=== PATIENT | male | born 2000 | race African-American/Black ===

== ENCOUNTER 2022-06-25 00:19 | Emergency (ER) | payer MEDICAID ==
[~2022-06-25] VITALS: Ht 182.9 cm; Wt 72.0 kg
[2022-06-25] MEDS ORDERED: CIP03OS RIGHTEYE (01:35)
[2022-06-25 01:40] VITALS: BP 130/67
== END 2022-06-25 01:45 | disposition home or self-care (01) ==
LOC: ER 00:22
DX: H10.211 Acute toxic conjunctivitis, right eye (principal)

== ENCOUNTER 2022-12-15 20:50 | Emergency (ER) | payer MEDICAID ==
[~2022-12-15] VITALS: Ht 182.9 cm; Wt 78.3 kg
[~2022-12-15 20:50] MED LIST: CIP03OS RIGHTEYE
[2022-12-15] MEDS ORDERED: TETANUS-DIPTH-ACEL PERTUSSIS 0.5ML SYR Tdap IM ONE (22:30)
[2022-12-16 00:30] VITALS: BP 137/83
[2022-12-16] MEDS ORDERED: AMOX500T86 PO (01:30)
== END 2022-12-16 01:34 | disposition left against medical advice (07) ==
LOC: ER 20:50
DX: S81.051A Open bite, right knee, initial encounter (principal); S81.031A Puncture wound without foreign body, right knee, initial encounter; W54.0XXA Bitten by dog, initial encounter; Y93.89 Activity, other specified; Y92.89 Other specified places as the place of occurrence of the external cause; Y99.8 Other external cause status
CPT/HCPCS: 73562; 90471; 90715

== ENCOUNTER 2024-11-17 23:41 | Emergency (ER) | payer MEDICAID ==
[~2024-11-17] VITALS: Ht 185.4 cm; Wt 76.6 kg
[~2024-11-17 23:41] MED LIST changes: +AMOX500T86 PO
[2024-11-18] VITALS: PULSE 62; RESP 8; O2SAT 98
[2024-11-18] MEDS: NALOXONE HCL 1MG/ML 2ML SYRINGE IV ONE (00:13)
[2024-11-18 00:21] LABS: Basophils # (auto) 0.1 10 ^3/uL (0-0.2); Basophils % (auto) 0.8 % (0.0-2.0); Eosinophils # (auto) 0.2 10 ^3/uL (0-0.8); Eosinophils % (auto) 1.5 % (0.0-7.0); Hematocrit 41.7 % (41.0-53.0); Hemoglobin 13.7 g/dL (13.5-17.5); Lymphocytes # (auto) 1.7 10 ^3/uL (0.4-5.4); Lymphocytes % (auto) 12.3 % (10.0-50.0); Mean Corpuscular Hemoglobin 27.3 pg (28.0-32.0); Mean Corpuscular Hgb Conc. 32.7 g/dL (32.0-36.0); Mean Corpuscular Volume 83.4 fL (80.0-100.0); Neutrophils # (auto) 10.9 10 ^3/uL (1.6-8.6); Neutrophils % (auto) 78.4 % (37.0-80.0); Platelet Count (auto) 304 10^3/uL (140-450); White Blood Cell 13.9 10^3/uL (4.4-10.8)
[2024-11-18 00:41] LABS: Alanine Aminotransferase 22 U/L (7-40); Alkaline Phosphatase 62 U/L (46-116); Anion Gap 11 (5-15); Aspartate Aminotransferase 35 U/L (13-40); BUN/Creatinine Ratio 11.2 (10.0-20.0); Blood Urea Nitrogen 11 mg/dL (9-23); Carbon Dioxide 26 mmol/L (20-31); Chloride 101 mmol/L (98-107); Sodium 138 mmol/L (136-145); Total Protein 7.6 g/dL (5.7-8.2)
[2024-11-18 00:42] LABS: Albumin 5.2 g/dL (3.2-4.8); Bilirubin, Total 0.8 mg/dL (0.2-1.0); Calcium 10.5 mg/dL (8.7-10.4); Glucose 116 mg/dL (74-106); Potassium 3.3 mmol/L (3.5-5.1)
[2024-11-18] MEDS: SODIUM CHLORIDE 0.9% 1,000 ML IV ONE (01:11)
[2024-11-18 01:48] LABS: Urine Bacteria None Seen /hpf (None Seen)
[2024-11-18 02:21] LABS: Urine Blood Negative /uL (Negative); Urine Clarity Clear (Clear); Urine Color Yellow (Yellow); Urine Mucus FEW (None Seen); Urine Protein, UAD TRACE (Negative); Urine Squamous Epithelial Cell FEW /hpf (<5); Urine Urobilinogen 2 mg/dL (Negative); Urine WBC 1 /HPF (0-3)
[2024-11-18 02:32] LABS: Cannabinoid Screen, Urine Pos (NEGATIVE); Cocaine Screen, Urine Neg (NEGATIVE)
[2024-11-18 02:33] LABS: Amphetamine Screen, Urine Neg (NEGATIVE); Barbiturate Scree,Urine Neg (NEGATIVE); Benzodiazephine Screen, Urine Neg (NEGATIVE); Opiate Scree,Urine Neg (NEGATIVE); Phencyclidine Screen, Urine Neg (NEGATIVE)
--- NOTE | 2024-11-18 02:36 | ED.PDOC ---
Psychiatric HPI Comments 23-year-old male brought in by mother. It upon initial exam patient states he was trying to get high so he took two tablets of fentanyl/oxycodone. States he was not feeling in the high effect so he called his desire to get more pills. Patient states he took over 10 pills throughout the day today. Upon talking with patient's mother she was states that patient has made several SI statements. Patient states he has made attempts in the past with overdosing. 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 Goes on binges four days while he leaves home and does not come home. Chief Complaint: Ingestion Time Seen by MD: 23:45 Primary Care Provider: GLADYS Reviewed Notes: Nurses Notes Information Source: Patient, Relative (Mother) Mode of Arrival: Ambulatory Past Medical History PAST MEDICAL HISTORY: Denies Surgical History: Denies all surgeries Family History Family History: Unknown Social History Smoker: Non-Smoker Alcohol: Denies ETOH Use Drugs: Denies Drug Use Lives In: Home Constitutional: denies: chills, diaphoresis, fatigue, fever, malaise, sweats, weakness, others EENTM: denies: blurred vision, double vision, ear bleeding, ear discharge, ear drainage, ear pain, ear ringing, eye pain, eye redness, hearing loss, mouth pain, mouth swelling, nasal discharge, nose bleeding, nose congestion, nose pain, photophobia, tearing, throat pain, throat swelling, voice changes, others Respiratory: denies: cough, hemoptysis, orthopnea, SOB at rest, shortness of breath, SOB with excertion, stridor, wheezing, others Cardiovascular: denies: chest pain, dizzy spells, diaphoresis, Dyspnea on exertion, edema, irregular heart beat, left arm pain, lightheadedness, palpitations, PND, syncope, others Gastrointestinal: denies: abdomen distended, abdominal pain, blood streaked bowels, constipated, diarrhea, dysphagia, difficulty swallowing, hematemesis, melena, nausea, poor appetite, poor fluid intake, rectal bleeding, rectal pain, vomiting, others Genitourinary: denies: burning, dysuria, flank pain, frequency, hematuria, incontinence, penile discharge, penile sore, pain, testicle pain, testicle swelling, urgency, others Neurological: denies: dizziness, fainting, headache, left sided numbness, left sided weakness, numbness, paresthesia, pre-existing deficit, right sided numbness, right sided weakness, seizure, speech problems, tingling, tremors, weakness, others Musculoskeletal: denies: back pain, gout, joint pain, joint swelling, muscle pain, muscle stiffness, neck pain, others Integumetry: denies: bruises, change in color, change in hair/nails, dryness, laceration, lesions, lumps, rash, wounds, others Allergic/Immunocompromised: denies: Difficulty Healing, Frequent Infections, Hives, Itching, others Hematologic/Lymphatic: denies: anemia, blood clots, easy bleeding, easy bruising, swollen glands, others Endocrine: denies: excessive hunger, excessive sweating, excessive thirst, excessive urination, flushing, intolerance to cold, intolerance to heat, unexplained weight gain, unexplained weight loss, others Psychiatric: reports: anxiety, hopeless; denies: bipolar disorder, depression, panic disorder, schizophrenia, sleepless, suicidal, others Physical Exam General Appearance: No Apparent Distress, Normal HEENT: Normal ENT Inspection, Pharynx Normal, TMs Normal Neck: Full Range of Motion, Non-Tender, Normal, Normal Inspection Respiratory: Chest Non-Tender, Lungs Clear, No Accessory Muscle Use, No Respiratory Distress, Normal Breath Sounds Cardiovascular: No Edema, No JVD, No Murmur, No Gallop, Normal Peripheral Pulses, Regular Rate/Rhythm Breast Exam: Deferred Gastrointestinal: No Organomegaly, Non Tender, No Pulsatile Mass, Normal Bowel Sounds, Soft Genitalia: Deferred Pelvic: Deferred Rectal: Deferred Extremities: No calf tenderness, Normal capillary refill, Normal inspection, Normal range of motion, Non-tender, No pedal edema Musculoskeletal : Apperance: Normal Neurologic: Alert, public safety director II-XII nml as Tested, No Motor Deficits, Normal Affect, Normal Mood, No Sensory Deficits Cerebellar Function: Normal Reflexes: Normal Skin: Dry, Normal Color, Warm Lymphatic: No Adenopathy Was a procedure done? Was a procedure done?: No Psych Differential Dx Psych. Differential Dx: Suicidal OD Differential Dx: Drug Overdose, Substance Abuse X-Ray, Labs, Meds, VS Vital Signs Date Time Temp Pulse Resp B/P (MAP) Pulse Ox O2 Delivery O2 Flow Rate FiO2 11/18/24 00:00 62 8 98 Nasal Cannula* 2 28 11/18/24 00:00 97.8 68 8 135/79 (97) 100 97.8 11/17/24 23:58 69 11/17/24 23:56 98.2 94 18 162/94 (116) 100 Lab Test 11/17/24 23:59 11/17/24 01:48 11/17/24 01:47 Range/Units White Blood Count 13.9 H 4.4-10.8 10^3/uL Red Blood Count 5.00 4.5-5.90 10^6/uL Hemoglobin 13.7 13.5-17.5 g/dL Hematocrit 41.7 41.0-53.0 % Mean Corpuscular Volume 83.4 80.0-100.0 fL Mean Corpuscular Hemoglobin 27.3 L 28.0-32.0 pg Mean Corpuscular Hemoglobin Concent 32.7 32.0-36.0 g/dL Red Cell Distribution Width 14.0 11.8-14.3 % Platelet Count 304 140-450 10^3/uL Mean Platelet Volume 7.7 6.9-10.8 fL Neutrophils (%) (Auto) 78.4 37.0-80.0 % Lymphocytes (%) (Auto) 12.3 10.0-50.0 % Monocytes (%) (Auto) 7.0 0.0-12.0 % Eosinophils (%) (Auto) 1.5 0.0-7.0 % Basophils (%) (Auto) 0.8 0.0-2.0 % Neutrophils # (Auto) 10.9 H 1.6-8.6 10 ^3/uL Lymphocytes # (Auto) 1.7 0.4-5.4 10 ^3/uL Monocytes # (Auto) 1.0 0-1.3 10 ^3/uL Eosinophils # (Auto) 0.2 0-0.8 10 ^3/uL Basophils # (Auto) 0.1 0-0.2 10 ^3/uL Nucleated Red Blood Cells 0.0 % Sodium Level 138 136-145 mmol/L Potassium Level 3.3 L 3.5-5.1 mmol/L Chloride Level 101 98-107 mmol/L Carbon Dioxide Level 26 20-31 mmol/L Anion Gap 11 5-15 Blood Urea Nitrogen 11 9-23 mg/dL Creatinine 0.98 0.700-1.30 mg/dL Glomerular Filtration Rate Calc 113 >90 mL/min BUN/Creatinine Ratio 11.2 10.0-20.0 Serum Glucose 116 H 74-106 mg/dL Calcium Level 10.5 H 8.7-10.4 mg/dL Total Bilirubin 0.8 0.2-1.0 mg/dL Aspartate Amino Transferase (AST) 35 13-40 U/L Alanine Aminotransferase (ALT) 22 7-40 U/L Alkaline Phosphatase 62 46-116 U/L Total Protein 7.6 5.7-8.2 g/dL Albumin 5.2 H 3.2-4.8 g/dL Urine Opiates Screen Pending Urine Fentanyl Screen Pending Urine Barbiturates Screen Pending Urine Phencyclidine Screen Pending Urine Amphetamines Screen Pending Urine Benzodiazepines Screen Pending Urine Cocaine Screen Pending Urine Cannabinoids Screen Pending Urine Color Yellow Yellow Urine Clarity Clear Clear Urine pH 6.0 5.0-9.0 Urine Specific [place] 1.030 1.001-1.035 Urine Protein Trace H Negative Urine Ketones 2+ H Negative Urine Blood Negative Negative /uL Urine Nitrite Negative Negative Urine Bilirubin Negative Negative Urine Urobilinogen 2 H Negative mg/dL Urine Leukocyte Esterase Negative Negative /uL Urine RBC 22 0 - 3 /hpf Urine Microscopic WBC 1 0-3 /HPF Urine Squamous Epithelial Cells Few <5 /hpf Urine Bacteria None seen None Seen /hpf Urine Mucus Few None Seen Urine Glucose Normal Normal mg/dL Current Medications Medications (Trade) Dose Ordered Sig/Jerod Route Start Time Stop Time Status Last Admin Naloxone HCl (Narcan) 2 mg ONCE ONCE IV 11/18/24 00:15 11/18/24 00:16 DC 11/18/24 00:13 Sodium Chloride 1,000 ml @ 1,000 mls/hr Q1H ONCE IV 11/18/24 01:15 11/18/24 02:14 DC 11/18/24 01:11 X-Ray, Labs, Meds, VS Comment Pending urine drug screen, pending psychiatric consult. Patient was placed under ED observation until he was space with psychiatrist Time of 1ST Reevaluation: 02:34 Reevaluation 1ST: Unchanged Patient Education/Counseling: Diagnosis, Treatment Family Education/Counseling: Diagnosis, Treatment Assigned to Dr. Bach Change of Shift?: Yes Departure 1 Departure Time of Disposition: 02:33 Impression: Primary Impression: Drug overdose Qualified Codes: T50.904A - Poisoning by unspecified drugs, medicaments and biological substances, undetermined, initial encounter Additional Impression: Suicide ideation Disposition: 30 STILL A PATIENT Condition: Stable Discharged With: Self Critical Care Note Critical Care Time?: No Stability Stability form required: No Heart Score Heart Score: Heart Score Response (Comments) Value History N/A 0 EKG N/A 0 Age N/A 0 Risk Factors N/A 0 Troponin N/A 0 Total 0 ELIOT LAZARO Nov 18, 2024 02:36
--- NOTE | 2024-11-18 04:44 | DVHINCON2 ---
Date of Service if different f: Nov 18, 2024 Time of Service: 04:13 Consult Consult Note PSYCHIATRY ED NEW CONSULT HPI: 23 yo pt with no known PPH presents to ED BIB parent for safety, psychiatric stabilization and possible med initiation in setting of intentional drug OD of ~ 10 oxycodone/fentanyl pills throughout the day. Psychiatry consulted for safety evaluation and recommendations in context of current presentation Per pt, reports "i have a drug problem and sometimes when i smoke too much, i say or do things but i don't really remember what I am saying or doing, its like my subconscious talking, i am not suicidal but i need to get myself cleaned up". Pt adamantly denies ingestion as suicide attempt/gesture or intention to self harm. Pt admits ingestion, although intentional, was primarily I was just trying to get really high. Pt now expresses remorse/regret for ingestion I need to go into a rehab program or something Currently endorses some feeling of "loneliness" but denies depressed mood, hopelessness, helplessness, negative thoughts, loss of interest, or anhedonia. Denies anxiety/panic/OCD/PTSD symptoms. Sleep/appetite/energy/conc relatively WNL. Adamantly denies SI/HI. Denies AVH/paranoia/catatonic/perceptual disturbances/personality changes. No overt manic, psychotic, major depressive, cognitive, dissociative phenomena, panic, or somatic symptoms noted. Appears future oriented/goal directed. Denies acute psychosocial stressors. Pt currently does not have psychiatrist/therapist out in community. Currently not on any psychotropic agents. No prior psych med trials. 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 Unknown trauma hx. Unknown FH. No acute medical issues, hx of seizures/TBI, or recent head injuries, NKDA Does have hx of suicide attempt x 1 via benzo OD in 2023. Some hx of SIB via cutting/burning but none in several years. No prior psych hospitalizations/5150. Denies history of violence, unprovoked aggression, or assaultive behaviors. Denies recent hx of impulsivity, attention seeking behaviors, anger outbursts, emotional dysregulation, or mood reactivity. Does not have access to firearms. Currently denies SI/HI. Identifies self/family as PPF. No safety concerns noted during encounter. MSE: General Appearance/Behavior: Alert and awake; appears stated age, well developed, fair grooming and hygiene; calm and cooperative, fair eye contact, no PMA/PMR Speech: coherent, rrr Thought Process: linear, logical, appears goal-directed Thought Content: Abnormal Thoughts and Perceptions: None Homicidality / Violent Thoughts: None Suicidality: adamantly denies SI Hallucinations: denies AVH Delusions: denies paranoia, persecutory, or grandiose delusions Obsessions /compulsions : None Judgment and Insight: fair/improved judgment with fair insight Mood & Affect: "feeling a bit better" with mood-congruent, appropriate Orientation: oriented to person, place, time Attention/Concentration: appears intact Memory: grossly intact Language: no unusual or inappropriate language Assessment: 23 yo pt with no known PPH presents to ED BIB parent for safety, psychiatric stabilization and possible med initiation in setting of intentional drug OD of ~ 10 oxycodone/fentanyl pills throughout the day Currently denies SI/HI/AVH. Linear and appears future oriented/ goal directed in thought. Identifies several protective factors including a desire to live, family, employment, etc. Pt medically cleared Pts presenting MH symptoms appear more secondary to acute intoxication of polysubstance abuse rather than primary mood disorder. Presently, pt does not show any signs of immediate danger to self or others that would warrant a higher level of care. Thus, pt does not meet criteria for 5150 or involuntary inpatient psych admission as is not DTS, DTO or GD although voluntary inpt psychiatric hospitalization was offered but pt respectfully declined. Also declined further ED observation/reevaluation. No acute safety concerns noted. Acute suicide risk appears nonexistent to relatively low Psychotropic med initiation not clinically indicated at this time but strongly encouraged pt to consider psychosocial/Substance abuse tx interventions to focus on intermodal dispatcher recovery and relapse prevention as pt appears to be in precontemplation stage. Pt interested in SW consultation prior to d/c Primary Diagnosis: Polysubstance (ETOH, THC, oxy/fentanyl and meth use) use disorder, moderate/severe. R/o SIMD Plan: Does not warrant involuntary inpatient psychiatric hospitalization or 5150 hold at this time No acute safety concerns Pt can be safely discharged back to current residence in AM after SW consultation Supportive tx provided, discussed safety plan with pt Emphasized LIMIT THC/EtOH intake, abstain from IDU, and social activation. Strongly encouraged pt to consider psychosocial/Substance abuse tx interventions to focus on intermodal dispatcher recovery and relapse prevention as pt appears to be in precontemplation stage Recommend SW consult to assist pt with any post discharge Substance abuse/IOP referrals per pts request Instructed pt to call [phone] or return to ED if mood symptoms worsen or new onset SI/HI upon discharge Pt verbalized understanding and is receptive to above tx plan This case was discussed with ED nurse/provider and all parties in agreement with above tx plan Jacques Hitchcock MD Plan discussed with: Patient, Other JACQUES HITCHCOCK MD Nov 18, 2024 04:44
[2024-11-18 07:42] VITALS: PULSE 62; RESP 12; O2SAT 97
--- NOTE | 2024-11-18 11:04 | ECG ---
[facility] Test Date: 2024-11-17 Test Time: 23:58:43 Pat Name: PAULINO OG Department: ED Room: Gender: M Jazz Singer: CHERELLE : 2000 Requested By: ELIOT LAZARO Order Number: [id number] Reading MD: Isaac Leavitt Measurements Intervals [place] Rate: 69 P: 83 RI: 144 QRS: 84 QRSD: 101 T: 57 QT: 404 QTc: 433 Interpretive Statements Sinus rhythm Biatrial enlargement ST elev, probable normal early repol pattern Electronically Signed On 11-21-2024 18:51:25 PDT by Isaac Leavitt Please click the below link to view image of tracing.
--- NOTE | 2024-11-18 13:31 | ED.PDOC ---
Departure 1 Departure Time of Disposition: 13:30 (Patient is medically cleared. Patient was cleared for discharge by psychiatry. Social work met with the patient to supply a resources. We will discharge patient home with outpatient follow up) Impression: Primary Impression: Drug overdose Qualified Codes: T50.904A - Poisoning by unspecified drugs, medicaments and biological substances, undetermined, initial encounter Additional Impression: Suicide ideation Disposition: HOME / SELF CARE / HOMELESS Condition: Stable Additional Instructions: It is important to continue to take your regular medications and follow up with your regular doctors. Discharged With: Self NUNU HARKINS MD Nov 18, 2024 13:31
[2024-11-18 13:39] VITALS: BP 138/84; PULSE 67; RESP 14; TEMP 98.2; O2SAT 96
== END 2024-11-18 13:48 | disposition home or self-care (01) ==
LOC: ER 23:41
DX: T40.412A Poisoning by fentanyl or fentanyl analogs, intentional self-harm, initial encounter (principal); R45.851 Suicidal ideations; Y92.89 Other specified places as the place of occurrence of the external cause
CPT/HCPCS: 36415; 80053; 80307; 81001; 85025; 93005; 96361; 96374; 99285; J2310; J7030